=== PATIENT | male | born 1985 | race Caucasian/White ===

== ENCOUNTER 2017-07-09 10:38 | Emergency (ER) | payer BC ==
[2017-07-09 11:22] VITALS: BP 127/91
--- NOTE | 2017-07-09 11:36 | UC ---
Dental HPI - HPI Summary HPI Summary: Pt presents accompanied by friend and brother with complaints of right jaw/ cheek swelling with pain and right sided headache that began this morning. He has not taken anything for this discomfort. His female friend with him today is very concerned due to pt's history of two brain tumors and doesn't want this "infection to do to his brain or rest of his body". Denies fever, chills, vision changes, sore throat, or recent illness. - History of Current Complaint Chief Complaint: UCDentalProblem Stated Complaint: SWOLLEN FACE DENTAL PAIN Time Seen by Provider: 07/09/17 11:35 Hx Obtained From: Patient Onset/Duration: Sudden Onset Severity: Severe Pain Intensity: 10 Pain Scale Used: 0-10 Numeric - Allergies/Home Medications Allergies/Adverse Reactions: Allergies Allergy/AdvReac Type Severity Reaction Status Date / Time onion Allergy Vomiting Verified 07/09/17 11:22 Home Medications: Home Medications Desmopressin (Nonrefrigerated) [Ddavp 0.01% Nasal [place]] 1 spray NASAL DAILY 05/14 [History Confirmed 07/09/17] Levothyroxine Sodium 07/09/17 [History] PMH/Surg Hx/FS Hx/Imm Hx Endocrine History: Hypothyroidism - Surgical History Surgical History: None Surgery Procedure, Year, and Place: brain tumor-December 2016 - Social History Lives: With Family Alcohol Use: None Substance Use Type: None Smoking Status (MU): Never Smoked Tobacco Review of Systems Constitutional: Negative Skin: Negative Eyes: Negative ENT: Dental Pain - Right Respiratory: Negative Cardiovascular: Negative Neurological: Negative Psychological: Negative All Other Systems Reviewed And Are Negative: Yes Physical Exam Triage Information Reviewed: Yes Appearance: Pain Distress, Obese Vital Signs: Initial Vital Signs Temp 98.1 F 07/09/17 11:17 Pulse 105 07/09/17 11:17 Resp 16 07/09/17 11:17 BP 127/91 07/09/17 11:17 Pulse Ox 100 07/09/17 11:17 Vital Signs Reviewed: Yes Eyes: Positive: Conjunctiva Clear, Other: - EOMI. PERRLA. Negative: Conjunctiva Inflamed, Discharge ENT: Positive: Pharynx normal, TMs normal, Uvula midline. Negative: Pharyngeal erythema, TM bulging, TM dull, TM red, Hoarse voice Dental: Positive: Gross Decay/Caries @ - Throughout, Abscess @ - Right lower gums, Cervical Lymphadenopathy - Right, Other: - Multiple missing teeth and gross wearing away of remaining teeth. Moderate swelling to lower right jaw. Negative: Bleeding Neck: Positive: Supple, Other: - TTP over right mandible, cheek, and maxillary sinus. Respiratory: Positive: Lungs clear, Normal breath sounds, No respiratory distress Cardiovascular: Positive: RRR, No Murmur, Pulses Normal Neurological: Positive: Alert Psychological: Positive: Age Appropriate Behavior Skin: Negative: rashes Dental Complaint Course/Dx - Course Course Of Treatment: I discussed with the pt and his family that I would like to start him on Clindamycin orally. The female friend that accompanied him today became frustrated and suggested that he needs IV antibiotics. I told her that this appears to be a dental abscess and he would likely do well with po antibiotics, but she insisted that given his history he should get IV antibiotics. The pt agreed with this. I told them if they wanted IV antibiotics , the ED would be a more appropriate place to go, but it would be up to the decision of the provider they see. They decided to go by personal vehicle to the [facility] ED and request IV antibiotics. - Differential Dx/Diagnosis Provider Diagnoses: Lower right dental abscess Discharge - Discharge Plan Condition: Stable Disposition: OTHER Discharge Disposition Comment: To [facility] by private car Referrals: Peng Gonzalez MD [Primary Care Provider] - Additional Instructions: To [facility] ED by private car - requesting IV antibiotic.
== END 2017-07-09 11:52 ==
LOC: UCEAST 10:38
DX: K04.7 Periapical abscess without sinus (principal)
CPT/HCPCS: 99211; G0463

== ENCOUNTER 2017-07-09 12:09 | Emergency (ER) | payer BC ==
[2017-07-09] MEDS ORDERED: Ondansetron INJ* 2 MG/ML VIAL IV ONE (13:16)
[2017-07-09] MEDS ORDERED: Morphine INJ* 4 MG/ML 1 ML CARPUJECT IV ONE (13:16)
[2017-07-09] MEDS ORDERED: Piperacillin/Tazobac ADVAN(*) 3.375 GM in NS 0.9% 100 ML* 100 ML IVPB ONE (13:18)
[2017-07-09] MEDS ORDERED: Morphine INJ* 4 MG/ML 1 ML SYRINGE (NEW SYRINGE VERSION) ONE (13:28)
[2017-07-09 13:59] LABS: ABS Basophils 0 10^3/ul (0-0.2); ABS Eosinophils 0.1 10^3/ul (0-0.6); ABS Lymphocytes 1.7 10^3/ul (1.0-4.8); ABS Monocytes 0.6 10^3/ul (0-0.8); ABS Neutrophils 5.6 10^3/ul (1.5-7.7); ABS Nucleated RBC 0 10^3/ul; Hematocrit 43 % (42-52); Hemoglobin 14.4 g/dl (14.0-18.0); Lymphocyte % 21.6 % (25-47); Mean Corpuscular HGB Conc 34 g/dl (31-36); Mean Corpuscular Hemoglobin 31 pg (27-31); Mean Corpuscular Volume 93 fL (80-94); Mean Platelet Volume 9 um3 (7.4-10.4); Nucleated Red Blood Cells % 0.1; Platelet Count 236 10^3/ul (150-450); Red Blood Count 4.59 10^6/ul (4.0-5.4); Red Cell Distribution Width 15 % (10.5-15)
--- NOTE | 2017-07-09 14:03 | ED ---
Throat Pain/Nasal Congestion - HPI Summary HPI Summary: Patient is a 31-year-old male who presents to the ED with right lower jaw pain, swelling, erythema and warmth to the right side of the neck. Endorses a mild amount of trismus. Denies dysphagia, but endorses odynophagia. History of 2 brain surgeries for tumor removals. Most recently in December. Denies fevers, sweats, chills. Pain is 9 out of 10, constant and throbbing most discretely located over the right lower jaw and right neck without radiation. Symptoms began last evening, and worsened very quickly throughout the overnight and this morning. Denies any history of dental abscesses, however he denies recent dental care. Denies any visual changes. Denies throat pain, change of voice. Denies chest pressure, shortness of breath, headaches. - History of Current Complaint Chief Complaint: EDHeadache Time Seen by Provider: 07/09/17 13:02 Hx Obtained From: Patient Onset/Duration: Gradual Onset Severity: Moderate Associated Signs And Symptoms: Positive: Dysphagia - Epiglottits Risk Factors Epiglottis Risk Factors: Negative - Allergies/Home Medications Allergies/Adverse Reactions: Allergies Allergy/AdvReac Type Severity Reaction Status Date / Time onion Allergy Vomiting Verified 07/09/17 11:22 PMH/Surg Hx/FS Hx/Imm Hx Previously Healthy: Yes - Surgical History Surgery Procedure, Year, and Place: brain tumor-December 2016 - Immunization History Hx Pertussis Vaccination: No Immunizations Up to Date: Unable to Obtain/Confirm Infectious Disease History: No Infectious Disease History: Denies: Traveled Outside the [place] in Last 30 Days - Social History Occupation: Employed Full-time Lives: With Family Alcohol Use: None Hx Substance Use: No Substance Use Type: Reports: None Hx Tobacco Use: No Smoking Status (MU): Never Smoked Tobacco Review of Systems - ROS Summary Review of Systems Summary: Constitutional: The patient denies fever, MUÑOZ, sweats or chills. HEENT: Head: The patient denies headaches or dizziness. Eyes: The patient denies diplopia, blurry vision, eye pain, eye discharge, photophobia. Throat: The patient denies sore throats or hoarseness. Cardiovascular: The patient denies chest pain, palpitations, syncope, night cramps, or orthostasis. Respiratory: The patient denies cough, sputum production, hemoptysis, dyspnea, wheezing. Gastrointestinal: The patient denies odynophagia, dysphagia, hematemesis, melenemesis. Denies abdominal pain, nausea or vomiting. Denies constipation or diarrhea. Genitourinary: Patient denies dysuria, hematuria, or pyuria. Patient denies back pain. Denies vaginal discharge, vaginal bleeding. Denies other urinary symptoms. Endocrine: The patient denies polydipsia, polyuria, or polyphagia. Muscles: The patient denies myalgia, strain or weakness. Joints: The patient denies arthralgia and/or arthritis. Neurologic: The patient denies headache, loss of consciousness, or seizure. Dermatologic: The patient denies hyperpigmentation, rash, or photosensitivity. Constitutional: Negative Negative: Fever, Chills, Fatigue, Skin Diaphoresis Eyes: Negative - I really needed like his pulse Cardiovascular: Negative Gastrointestinal: Negative Genitourinary: Negative Positive: no symptoms reported, see HPI Musculoskeletal: Negative Neurological: Negative All Other Systems Reviewed And Are Negative: Yes Physical Exam - Summary Physical Exam Summary: Appearance: WDW, comfortable, pleasant, alert Skin: Soft dry skin, no lesions. Nailbeds pink with no cyanosis or clubbing. No petechia noted. Erythema and warmth to the right cheek and lateral neck. Eyes: JAS, EOMI, Conjunctiva pink with no redness or exudates. Mouth: Dentition without lesions. Moist mucosa. Dental caries with surrounding erythema to tooth #29. Neck: Full range of motion. Palpable thyroid. Trachea at midline. Swelling to the right lateral neck. Pulm: Chest symmetrical expansion. No deformities on posterior chest wall. Lungs clear to auscultation and percussion, without adventitious sounds. CV: No JVD. No deformities on anterior chest wall. Heart sounds. RRR. Normal S1 and single S2. No S3, S4, rubs, or murmurs. Carotids 2+ bilaterally without bruits. . exam not performed GI: Bowel sounds WNL in all 4 quadrants. No pain on deep palpation of all 4 quadrants. Negative page's, negative obturator. Psoas not performed. No pain over Mcburney's point. Musculoskeletal: Flexion and extension of neck without limitations. ROM WNL in all extremities. No deformities noted. Pulses +2 bilaterally. Neuro: Motor strength is 5/5 in upper and lower extremities bilaterally. A&OX3 Psych: Logical, coherent Triage Information Reviewed: Yes Vital Signs On Initial Exam: Initial Vitals Temp Pulse Resp BP Pulse Ox 96.4 F 113 16 146/93 98 07/09/17 12:12 07/09/17 12:12 18 12:12 07/09/17 12:12 07/09/17 12:12 Vital Signs Reviewed: Yes Appearance: Positive: Well-Nourished Skin: Positive: Warm, Skin Color Reflects Adequate Perfusion Head/Face: Positive: Normal Head/Face Inspection Eyes: Positive: EOMI, JAS, Conjunctiva Clear Dental: Positive: Percussion Tenderness @ - Tooth #28, Gross Decay/Caries @ - Throughout, Dental Fracture @ - Tooth #28, Cellulitis @ - Right lateral side of the neck with associated cervical lymphadenopathy, no abscess is appreciated Neck: Positive: Tenderness @ - Right lateral neck Diagnostics - Vital Signs Vital Signs Temp Pulse Resp BP Pulse Ox 07/09/17 13:49 18 07/09/17 12:12 96.4 F 113 16 146/93 98 - Laboratory Lab Results: Lab Results 07/09/17 Range/Units 13:40 WBC 8.0 (3.5-10.8) 10^3/ul RBC 4.59 (4.0-5.4) 10^6/ul Hgb 14.4 (14.0-18.0) g/dl Hct 43 (42-52) % MCV 93 (80-94) fL MCH 31 (27-31) pg MCHC 34 (31-36) g/dl RDW 15 (10.5-15) % Plt Count 236 (150-450) 10^3/ul MPV 9 (7.4-10.4) um3 Neut % (Auto) 69.5 (38-83) % Lymph % (Auto) 21.6 L (25-47) % [place] % (Auto) 7.5 (1-9) % Eos % (Auto) 1.0 (0-6) % Baso % (Auto) 0.4 (0-2) % Absolute Neuts (auto) 5.6 (1.5-7.7) 10^3/ul Absolute Lymphs (auto) 1.7 (1.0-4.8) 10^3/ul Absolute Monos (auto) 0.6 (0-0.8) 10^3/ul Absolute Eos (auto) 0.1 (0-0.6) 10^3/ul Absolute Basos (auto) 0 (0-0.2) 10^3/ul Absolute Nucleated RBC 0 10^3/ul Nucleated RBC % 0.1 Result Diagrams: 07/09/17 13:40 07/09/17 13:40 Lab Statement: Any lab studies that have been ordered have been reviewed, and results considered in the medical decision making process. EENT Course/Dx - Course Course Of Treatment: During the course of treatment, the patient is evaluated for right dental abscess versus deep space neck infection. Labs and blood cultures obtained. Zosyn 3.25 g IV given. Zofran and morphine IV with relief of symptoms. There is a mild amount of erythema and warmth to the right lateral neck with concern for cold existing cellulitis. CT soft tissue neck obtained to assess for deep space neck infection due to the rapid onset of symptoms versus dental abscess causing associated neck cellulitis. Labs within normal limits except for elevated LFTs, most likely related to his benign tumors. He is given clindamycin 300 mg 4 times daily 7 days. He is referred to ENT and will follow-up with a dentist as well. He is also to follow-up with Dr. Thomas as he does not have a neurologist in the area. I have asked him to get an appointment and have his records sent as soon as possible since he will likely need serial MRIs. On CT soft tissue neck there shows to be an inflammatory change along the right face consistent with a cellulitis without loculated fluid collection to suggest abscess. Extensive carious disease suggesting odontogenic source of infection. 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 While this is considered a benign tumor, it also may be fast-growing. He is to follow up with neurology and ENT regarding this. He is encouraged ibuprofen 60omg 3 times daily and for pain not well controlled with NSAIDs, he will take tramadol up to 3 times daily. - Differential Diagnoses Differential Diagnoses: Dental Abscess, Dental Caries - Diagnoses Provider Diagnoses: Pain, dental Discharge - Discharge Plan Condition: Stable Disposition: HOME Prescriptions: Clindamycin Cap(NF) [Clindamycin Cap 300 mg Cap(NF)] 300 mg PO Q6H #28 cap traMADol TAB* [Ultram*] 50 mg PO Q8H PRN #12 tab MDD 3 PRN Reason: Pain Patient Education Materials: Cellulitis (ED) Forms: *Work Release Referrals: Nimo Thomas MD [Medical Doctor] - Peng Gonzalez MD [Primary Care Provider] - Rubio Elder MD [Medical Doctor] - Additional Instructions: Please follow up with a dentist first, if you need ENT, I have given you a follow-up to Dr. Elder or if needed Call today for an appointment Please follow up with Dr. Thomas Ibuprofen 600 mg 3 times daily for inflammation Tramadol up to 3 times daily for pain not well controlled with ibuprofen Ice to the area 3 days off work If you develop any worsening symptoms, worsening redness warmth or swelling to the cheek, difficulty swallowing or breathing or unable to swallow secretions, return to the ED immediately.
[2017-07-09 14:17] LABS: EGFR Non-African American 80.8 (>60)
[2017-07-09] MEDS ORDERED: Iohexol 300* (CONTRAST) 10 ML SDV IV ONE (14:22)
--- NOTE | 2017-07-09 14:58 | RAD ---
HISTORY: Neck cellulitis COMPARISONS: None TECHNIQUE: Multiple contiguous axial CT scans were obtained of the neck after the administration of nonionic intravenous contrast, with coronal and sagittal multiplanar reformations. FINDINGS: BRAIN AND ORBITS: The patient is status post craniotomy. PARANASAL SINUSES: The visualized paranasal sinuses are clear. SALIVARY GLANDS: The parotid glands, submandibular glands, sublingual glands are normal. NASAL CAVITY/NASOPHARYNX: The nasal cavity and nasopharynx are normal. ORAL CAVITY/OROPHARYNX: There is about circumscribed lucency along the crown of the smaller mandible on the left. There are multiple. Lucencies along the mandible and maxilla with extensive carious disease. LARYNGEAL APPARATUS/HYPOPHARYNX: The laryngeal apparatus and hypopharynx are normal. UPPER AIRWAY/UPPER ESOPHAGUS: The visualized upper airway and esophagus are normal. LUNG APICES: The lung apices are clear. THYROID GLAND: The thyroid gland is normal. LYMPH NODES: There is no lymphadenopathy by size criteria. VASCULATURE: The vasculature is unremarkable. BONES AND SOFT TISSUES: There is stranding of the subcutaneous the right face with thickening of the platysma fascia. There is no loculated fluid collection to suggest abscess. There is soft tissue calcification along the left face in axial image 73. OTHER: None. IMPRESSION: 1. INFLAMMATORY CHANGE ALONG THE RIGHT FACE CONSISTENT WITH CELLULITIS WITHOUT LOCULATED FLUID COLLECTION TO SUGGEST ABSCESS. 2. EXTENSIVE CARIOUS DISEASE SUGGESTING ODONTOGENIC SOURCE OF INFECTION. 3. LUCENCY ALONG THE LEFT LAST MOLAR, SUGGESTIVE OF A KERATOCYSTIC ODONTOGENIC TUMOR
[2017-07-09 15:43] VITALS: BP 117/74
== END 2017-07-09 15:42 | disposition home or self-care (01) ==
LOC: ED 12:09
DX: K02.9 Dental caries, unspecified (principal)
CPT/HCPCS: 36415; 70491; 80053; 83605; 83690; 85025; 86140; 87040; 96374; 96375; 99283; J2270; J2405; J2543; Q9967

== ENCOUNTER 2017-08-01 18:30 | Emergency (ER) | payer BC ==
--- NOTE | 2017-08-01 18:47 | ED ---
Headache - History Of Current Complaint Stated Complaint: HEADACHE Time Seen by Provider: 08/01/17 18:46 - Allergies/Home Medications Allergies/Adverse Reactions: Allergies Allergy/AdvReac Type Severity Reaction Status Date / Time onion Allergy Vomiting Verified 07/09/17 11:22 PMH/Surg Hx/FS Hx/Imm Hx - Surgical History Surgery Procedure, Year, and Place: brain tumor-December 2016 Infectious Disease History: Denies: Traveled Outside the [place] in Last 30 Days - Social History Alcohol Use: None Hx Substance Use: No Substance Use Type: Reports: None Hx Tobacco Use: No Smoking Status (MU): Never Smoked Tobacco Diagnostics - Laboratory Result Diagrams: 08/01/17 20:15 08/01/17 20:15 Lab Statement: Any lab studies that have been ordered have been reviewed, and results considered in the medical decision making process. Headache Course/Dx - Diagnoses Provider Diagnoses: C. difficile colitis, Headache Discharge - Discharge Plan Condition: Stable Disposition: HOME Prescriptions: Ibuprofen TAB* [Motrin TAB* 800 MG] 800 mg PO Q6H PRN #30 tab PRN Reason: Fever/Pain oxyCODONE/Acetamin 5/325 MG* [Percocet 5/325 TAB*] 1 tab PO Q6H PRN #14 tab MDD 4 PRN Reason: Headache Vancomycin CAP* 125 mg PO QID #40 cap Patient Education Materials: Migraine Headache (ED), Clostridium Difficile Infection (ED) Forms: *Work Release Referrals: Peng Gonzalez MD [Primary Care Provider] - 3 Days Additional Instructions: RETURN TO EMERGENCY DEPARTMENT FOR ANY NEW OR WORSENING SYMPTOMS
[2017-08-01] MEDS ORDERED: HYDROmorphone INJ* 2 MG/ML CARPUJECT SYRINGE IV SLOW PU ONE (19:28)
[2017-08-01] MEDS ORDERED: Acetaminophen TAB* 325 MG PO ONE (19:28)
[2017-08-01] MEDS ORDERED: NS 0.9% 1000 ML* 1,000 ML IV ONE ×2 (19:29→20:59)
[2017-08-01] MEDS ORDERED: diPHENhydraMINE IV* 50 MG/ML 1 ml VIAL (BENADRYL) IV ONE (19:29)
[2017-08-01] MEDS ORDERED: Metoclopramide IV* 5 MG/ML 2 ML VIAL IV SLOW PU ONE (19:29)
--- NOTE | 2017-08-01 20:17 | RAD ---
Indication: Infiltrates. CT of the brain was performed without IV contrast Ventricular structures are midline. No midline shift is noted. The extraction spaces are unremarkable. The patient status post right temporal craniotomy. Previously identified suprasellar mass is not present on this study. There is presumed to have been resected. There is no evidence of hemorrhage. No other high or low density lesions are identified. Mastoid air cells and paranasal sinuses are clear. IMPRESSION: There is no evidence of mass or hemorrhage. 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
--- NOTE | 2017-08-01 20:23 | RAD ---
Indication: Fever. Single frontal view of the chest demonstrates no mediastinal shift. Heart is of normal size and configuration. Lung campos appear clear. IMPRESSION: No active cardiopulmonary disease is noted.
[2017-08-01 20:25] LABS: Hematocrit 46 % (42-52); Mean Corpuscular HGB Conc 35 g/dl (31-36); Mean Corpuscular Hemoglobin 31 pg (27-31); Mean Corpuscular Volume 91 fL (80-94); Mean Platelet Volume 9 um3 (7.4-10.4); Platelet Count 272 10^3/ul (150-450); Red Blood Count 5.12 10^6/ul (4.0-5.4); Red Cell Distribution Width 14 % (10.5-15); White Blood Count 12.8 10^3/ul (3.5-10.8)
[2017-08-01 20:39] LABS: EGFR Non-African American 48.9 (>60)
[2017-08-01 20:41] LABS: INR 1.34 (0.77-1.02)
[2017-08-01 20:51] LABS: ABS Basophils 0.1 10^3/ul (0-0.2); ABS Eosinophils 0 10^3/ul (0-0.6); ABS Lymphocytes 1.8 10^3/ul (1.0-4.8); ABS Monocytes 1.7 10^3/ul (0-0.8); ABS Neutrophils 9.2 10^3/ul (1.5-7.7); ABS Nucleated RBC 0 10^3/ul; Eosinophil % 0.1 % (0-6); Lymphocyte % 13.9 % (25-47); Nucleated Red Blood Cells % 0
[2017-08-01] MEDS ORDERED: Ibuprofen TAB* 800 MG PO ONE (21:04)
[2017-08-01] MEDS ORDERED: metroNIDAZOLE TAB* 250 MG PO ONE (23:27)
[2017-08-02] MEDS ORDERED: Vancomycin CAP* 125 MG CAP PO ONE (00:01)
[2017-08-02 00:02] LABS: Urine Appearance Clear; Urine Blood Negative (Negative); Urine Color Yellow; Urine Ketones Negative (Negative); Urine Protein Negative (Negative); Urine Specific Gravity 1.006 (1.010-1.030); Urine Urobilinogen Negative (Negative)
[2017-08-02 00:37] VITALS: BP 108/55
--- NOTE | 2017-08-28 06:39 | ED ---
Robin Rocha Stephanie, scribed for Kristen Choudhury MD on 08/01/17 at 1939 . Headache - HPI Summary HPI Summary: The pt is a 31 y/o M presenting to the ED with c/o migraine that began at 20:00 yesterday. Symptoms include shakes and ear pain. The pt denies N/V and nasal congestion. 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 The pt denies radiation and chemotherapy after the tumor removal in 2010. The pt denies neurological deficit following the removal of the tumor. In 2016, another brain tumor was discovered and removed in November. The pt reports symptoms of migraines with the tumor. Per mother, the pt had one follow-up MRI about 4 months ago after the removal of the second tumor. The pt states he recently saw a dentist one week ago due to edema in his jaw where he was informed that the xrays showed he had a tumor on his jaw. The pt saw his neurologist yesterday and was prescribed medication to decrease his MUÑOZ. - History Of Current Complaint Chief Complaint: EDFluSymptoms Stated Complaint: HEADACHE Time Seen by Provider: 08/01/17 18:46 Hx Obtained From: Patient, Family/Personnel Representative - mother Onset/Duration: Gradual Onset, Started days ago, Still Present Currently Pain Is: Severe Timing: Constant Character: Migraine Location of Headache: Diffuse Aggravating Factor: Nothing Allevating Factors: Nothing - Allergies/Home Medications Allergies/Adverse Reactions: Allergies Allergy/AdvReac Type Severity Reaction Status Date / Time onion Allergy Vomiting Verified 07/09/17 11:22 PMH/Surg Hx/FS Hx/Imm Hx Neurological History: Reports: Hx Migraine, Other Neuro Impairments/Disorders - brain tumors - Surgical History Surgery Procedure, Year, and Place: brain tumor-December 2016 Infectious Disease History: No Infectious Disease History: Denies: Traveled Outside the [place] in Last 30 Days - Family History Known Family History: Positive: Other - cancer - Social History Occupation: Employed Full-time Lives: With Family Alcohol Use: Rare Hx Substance Use: No Substance Use Type: Reports: None Hx Tobacco Use: No Smoking Status (MU): Never Smoked Tobacco Review of Systems Negative: Fever Positive: Other - Negative: nasal congestion Negative: Vomiting, Nausea Positive: Headache All Other Systems Reviewed And Are Negative: Yes Physical Exam - Summary Physical Exam Summary: VITAL SIGNS: Reviewed. GENERAL: Patient is a well-developed and nourished MALE who is lying uncomfortably due to MUÑOZ. Patient is not in any acute respiratory distress. HEAD AND FACE: No signs of trauma. No ecchymosis, hematomas or skull depressions. No sinus tenderness. EYES: PERRLA, EOMI x 2, No injected conjunctiva, no nystagmus. EARS: Hearing grossly intact. Ear canals and tympanic membranes are within normal limits. MOUTH: Oropharynx within normal limits. NECK: Supple, trachea is midline, no adenopathy, no JVD, no carotid bruit, no c- spine tenderness, neck with full ROM. CHEST: Symmetric, no tenderness at palpation LUNGS: Clear to auscultation bilaterally. No wheezing or crackles. CVS: Tachycardic, regular rhythm, S1 and S2 present, no murmurs or gallops appreciated. ABDOMEN: Soft, non-tender. No signs of distention. No rebound no guarding, and no masses palpated. Bowel sounds are normal. EXTREMITIES: FROM in all major joints, no edema, no cyanosis or clubbing. NEURO: Alert and oriented x 3. No acute neurological deficits. Speech is normal and follows commands. SKIN: Dry and warm Triage Information Reviewed: Yes Vital Signs On Initial Exam: Initial Vitals BP 124/77 08/01/17 18:39 Vital Signs Reviewed: Yes Diagnostics - Vital Signs Vital Signs Temp Pulse Resp BP Pulse Ox 08/01/17 18:47 101.2 F 133 22 124/77 98 08/01/17 18:40 131 96 08/01/17 18:39 124/77 - Laboratory Lab Results: Lab Results 08/01/17 08/01/17 08/01/17 Range/Units 20:15 20:15 20:15 WBC 12.8 H (3.5-10.8) 10^3/ul RBC 5.12 (4.0-5.4) 10^6/ul Hgb 16.0 (14.0-18.0) g/dl Hct 46 (42-52) % MCV 91 (80-94) fL MCH 31 (27-31) pg MCHC 35 (31-36) g/dl RDW 14 (10.5-15) % Plt Count 272 (150-450) 10^3/ul MPV 9 (7.4-10.4) um3 Neut % (Auto) 71.9 (38-83) % Lymph % (Auto) 13.9 L (25-47) % [place] % (Auto) 13.5 H (0-7) % Eos % (Auto) 0.1 (0-6) % Baso % (Auto) 0.6 (0-2) % Absolute Neuts (auto) 9.2 H (1.5-7.7) 10^3/ul Absolute Lymphs (auto) 1.8 (1.0-4.8) 10^3/ul Absolute Monos (auto) 1.7 H (0-0.8) 10^3/ul Absolute Eos (auto) 0 (0-0.6) 10^3/ul Absolute Basos (auto) 0.1 (0-0.2) 10^3/ul Absolute Nucleated RBC 0 10^3/ul Nucleated RBC % 0 INR (Anticoag Therapy) 1.34 H (0.77-1.02) APTT 35.0 (26.0-36.3) seconds Sodium 142 (133-145) mmol/L Potassium 3.6 (3.5-5.0) mmol/L Chloride 111 (101-111) mmol/L Carbon Dioxide 18 L (22-32) mmol/L Anion Gap 13 H (2-11) mmol/L BUN 13 (6-24) mg/dL Creatinine 1.67 H (0.67-1.17) mg/dL Est GFR ( Amer) 62.9 (>60) Est GFR (Non-Af Amer) 48.9 (>60) BUN/Creatinine Ratio 7.8 L (8-20) Glucose 138 H (70-100) mg/dL Lactic Acid (0.5-2.0) mmol/L Calcium 10.0 (8.6-10.3) mg/dL Total Bilirubin 0.70 (0.2-1.0) mg/dL AST 21 (13-39) U/L ALT 22 (7-52) U/L Alkaline Phosphatase 107 H (34-104) U/L Total Creatine Kinase 302 H (10-223) U/L C-Reactive Protein 158.15 H (< 5.00) mg/L Total Protein 8.3 (6.4-8.9) g/dL Albumin 4.5 (3.2-5.2) g/dL Globulin 3.8 (2-4) g/dL Albumin/Globulin Ratio 1.2 (1-3) Urine Color Urine Appearance Urine pH (5-9) Ur Specific [place] (1.010-1.030) Urine Protein (Negative) Urine Ketones (Negative) Urine Blood (Negative) Urine Nitrate (Negative) Urine Bilirubin (Negative) Urine Urobilinogen (Negative) Ur Leukocyte Esterase (Negative) Urine Glucose (Negative) Influenza A (Rapid) (Negative) Influenza B (Rapid) (Negative) Group A Strep Rapid (Negative) 08/01/17 08/01/17 08/01/17 Range/Units 20:15 20:25 20:26 WBC (3.5-10.8) 10^3/ul RBC (4.0-5.4) 10^6/ul Hgb (14.0-18.0) g/dl Hct (42-52) % MCV (80-94) fL MCH (27-31) pg MCHC (31-36) g/dl RDW (10.5-15) % Plt Count (150-450) 10^3/ul MPV (7.4-10.4) um3 Neut % (Auto) (38-83) % Lymph % (Auto) (25-47) % [place] % (Auto) (0-7) % Eos % (Auto) (0-6) % Baso % (Auto) (0-2) % Absolute Neuts (auto) (1.5-7.7) 10^3/ul Absolute Lymphs (auto) (1.0-4.8) 10^3/ul Absolute Monos (auto) (0-0.8) 10^3/ul Absolute Eos (auto) (0-0.6) 10^3/ul Absolute Basos (auto) (0-0.2) 10^3/ul Absolute Nucleated RBC 10^3/ul Nucleated RBC % INR (Anticoag Therapy) (0.77-1.02) APTT (26.0-36.3) seconds Sodium (133-145) mmol/L Potassium (3.5-5.0) mmol/L Chloride (101-111) mmol/L Carbon Dioxide (22-32) mmol/L Anion Gap (2-11) mmol/L BUN (6-24) mg/dL Creatinine (0.67-1.17) mg/dL Est GFR ( Amer) (>60) Est GFR (Non-Af Amer) (>60) BUN/Creatinine Ratio (8-20) Glucose (70-100) mg/dL Lactic Acid 1.8 (0.5-2.0) mmol/L Calcium (8.6-10.3) mg/dL Total Bilirubin (0.2-1.0) mg/dL AST (13-39) U/L ALT (7-52) U/L Alkaline Phosphatase (34-104) U/L Total Creatine Kinase (10-223) U/L C-Reactive Protein (< 5.00) mg/L Total Protein (6.4-8.9) g/dL Albumin (3.2-5.2) g/dL Globulin (2-4) g/dL Albumin/Globulin Ratio (1-3) Urine Color Urine Appearance Urine pH (5-9) Ur Specific [place] (1.010-1.030) Urine Protein (Negative) Urine Ketones (Negative) Urine Blood (Negative) Urine Nitrate (Negative) Urine Bilirubin (Negative) Urine Urobilinogen (Negative) Ur Leukocyte Esterase (Negative) Urine Glucose (Negative) Influenza A (Rapid) Negative (Negative) Influenza B (Rapid) Negative (Negative) Group A Strep Rapid Negative (Negative) 08/01/17 Range/Units 23:48 WBC (3.5-10.8) 10^3/ul RBC (4.0-5.4) 10^6/ul Hgb (14.0-18.0) g/dl Hct (42-52) % MCV (80-94) fL MCH (27-31) pg MCHC (31-36) g/dl RDW (10.5-15) % Plt Count (150-450) 10^3/ul MPV (7.4-10.4) um3 Neut % (Auto) (38-83) % Lymph % (Auto) (25-47) % [place] % (Auto) (0-7) % Eos % (Auto) (0-6) % Baso % (Auto) (0-2) % Absolute Neuts (auto) (1.5-7.7) 10^3/ul Absolute Lymphs (auto) (1.0-4.8) 10^3/ul Absolute Monos (auto) (0-0.8) 10^3/ul Absolute Eos (auto) (0-0.6) 10^3/ul Absolute Basos (auto) (0-0.2) 10^3/ul Absolute Nucleated RBC 10^3/ul Nucleated RBC % INR (Anticoag Therapy) (0.77-1.02) APTT (26.0-36.3) seconds Sodium (133-145) mmol/L Potassium (3.5-5.0) mmol/L Chloride (101-111) mmol/L Carbon Dioxide (22-32) mmol/L Anion Gap (2-11) mmol/L BUN (6-24) mg/dL Creatinine (0.67-1.17) mg/dL Est GFR ( Amer) (>60) Est GFR (Non-Af Amer) (>60) BUN/Creatinine Ratio (8-20) Glucose (70-100) mg/dL Lactic Acid (0.5-2.0) mmol/L Calcium (8.6-10.3) mg/dL Total Bilirubin (0.2-1.0) mg/dL AST (13-39) U/L ALT (7-52) U/L Alkaline Phosphatase (34-104) U/L Total Creatine Kinase (10-223) U/L C-Reactive Protein (< 5.00) mg/L Total Protein (6.4-8.9) g/dL Albumin (3.2-5.2) g/dL Globulin (2-4) g/dL Albumin/Globulin Ratio (1-3) Urine Color Yellow Urine Appearance Clear Urine pH 5.0 (5-9) Ur Specific [place] 1.006 L (1.010-1.030) Urine Protein Negative (Negative) Urine Ketones Negative (Negative) Urine Blood Negative (Negative) Urine Nitrate Negative (Negative) Urine Bilirubin Negative (Negative) Urine Urobilinogen Negative (Negative) Ur Leukocyte Esterase Negative (Negative) Urine Glucose Negative (Negative) Influenza A (Rapid) (Negative) Influenza B (Rapid) (Negative) Group A Strep Rapid (Negative) Result Diagrams: 08/01/17 20:15 08/01/17 20:15 Lab Statement: Any lab studies that have been ordered have been reviewed, and results considered in the medical decision making process. - Radiology CXR Xray Interpretation: No Acute Changes Radiology Interpretation Completed By: Radiologist - No active cardiopulmonary disease is noted. ED physician has reviewed this imaging report and agrees. - CT Brain CT Interpretation: No Acute Changes CT Interpretation Completed By: Radiologist - There is no evidence of mass or hemorrhage. 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 ED physician has reviewed this imaging report and agrees. Headache Course/Dx - Course Course Of Treatment: The pt tested positive for C.diff colitis. He will be discharged. - Diagnoses Provider Diagnoses: C. difficile colitis, Headache Discharge - Sign-Out/Discharge Documenting (check all that apply): Discharge - Discharge Plan Condition: Stable Disposition: HOME Prescriptions: Ibuprofen TAB* [Motrin TAB* 800 MG] 800 mg PO Q6H PRN #30 tab PRN Reason: Fever/Pain oxyCODONE/Acetamin 5/325 MG* [Percocet 5/325 TAB*] 1 tab PO Q6H PRN #14 tab MDD 4 PRN Reason: Headache Vancomycin CAP* 125 mg PO QID #40 cap Patient Education Materials: Migraine Headache (ED), Clostridium Difficile Infection (ED) Forms: *Work Release Referrals: Peng Gonzalez MD [Primary Care Provider] - 3 Days Additional Instructions: RETURN TO EMERGENCY DEPARTMENT FOR ANY NEW OR WORSENING SYMPTOMS - Billing Disposition and Condition Condition: STABLE Disposition: HOME The documentation as recorded by the Robin dalal Stephanie accurately reflects the service I personally performed and the decisions made by , Kristen Choudhury MD.
== END 2017-08-02 00:37 | disposition home or self-care (01) ==
LOC: ED 18:30
DX: R51 Headache (principal); A04.72 Enterocolitis due to Clostridium difficile, not specified as recurrent
CPT/HCPCS: 36415; 70450; 71045; 80053; 81003; 82550; 83605; 85025; 85610; 85730; 86140; 87040; 87493; 87502; 87651; 96361; 96374; 96375; 99284; A9270-GY; J1170; J1200; J2765

== ENCOUNTER 2017-10-09 10:15 | Emergency (ER) | payer BC ==
[2017-10-09 10:19] VITALS: BP 147/97
--- NOTE | 2017-10-09 11:02 | RAD ---
INDICATION: Left knee pain, twisting injury one month ago. TECHNIQUE: 4 views of the left knee were obtained. FINDINGS: The bones are normal alignment. No joint effusion or fracture is seen. There is a nonspecific lucent area present in the subarticular region of the lateral femoral condyle suggestive of a subchondral cyst. Joint spaces appear maintained. IMPRESSION: NO EVIDENCE FOR FRACTURE.
--- NOTE | 2017-10-09 11:22 | ED ---
Roxana Rocha Gabriel, scribed for Martin Davis MD on 10/09/17 at 1026 . Lower Extremity - HPI Summary HPI Summary: This patient is a 31 year old M presenting to [facility] accompanied by his mother with a chief complaint of increased L pain s/p injury that occurred one month ago. The patient rates the pain 4/10 in severity and states it feels like nerve pain. Symptoms aggravated by bending at the knee. Symptoms alleviated by not moving it. Patient states the pain will shoot up into his left flank. Patient denies injury. Pt states he currently does not have cancer currently. Hx of brain cancer on november 2016 it was resected. - History of Current Complaint Chief Complaint: EDExtremityLower Stated Complaint: LT KNEE PROBLEM Time Seen by Provider: 10/09/17 10:23 Hx Obtained From: Patient Mechanism Of Injury: Other - none Onset/Duration: Still Present Severity Initially: Mild Severity Currently: Mild Pain Intensity: 4 Pain Scale Used: 0-10 Numeric Timing: Constant Location: Is Discrete @ - L knee Aggravating Factor(s): Standing, Ambulation, Movement Alleviating Factor(s): Rest Able to Bear Weight: Yes - Allergies/Home Medications Allergies/Adverse Reactions: Allergies Allergy/AdvReac Type Severity Reaction Status Date / Time onion Allergy Vomiting Verified 07/09/17 11:22 Home Medications: Home Medications Desmopressin 0.01% NASAL* [DDAVP 0.01% Nasal *] 1 puff NASAL QPM 10/09/17 [ History Confirmed 10/09/17] Levothyroxine TAB* [Synthroid TAB*] 100 mcg PO DAILY 10/09/17 [History Confirmed 10/09/17] PMH/Surg Hx/FS Hx/Imm Hx Endocrine/Hematology History: Denies: Hx Blood Transfusions, Hx Bone Marrow Disease Cardiovascular History: Denies: Hx Coronary Artery Disease, Hx Deep Vein Thrombosis Respiratory History: Denies: Hx Chronic Obstructive Pulmonary Disease (COPD) GI History: Denies: Hx Crohn's Disease Neurological History: Reports: Hx Migraine, Other Neuro Impairments/Disorders - brain tumors Psychiatric History: Denies: Hx Oppositional [place] Disorder - Cancer History Cancer Type, Location and Year: BRAIN TUMOR - Surgical History Surgery Procedure, Year, and Place: brain tumor-December 2016 Infectious Disease History: No Infectious Disease History: Denies: Traveled Outside the [place] in Last 30 Days - Family History Known Family History: Positive: Other - cancer Negative: Respiratory Disease, Seizure Disorder - Social History Occupation: Employed Full-time Lives: With Family Alcohol Use: Rare Hx Substance Use: No Substance Use Type: Reports: None Hx Tobacco Use: No Smoking Status (MU): Never Smoked Tobacco Review of Systems Constitutional: Negative - injury Positive: Other - left knee pain All Other Systems Reviewed And Are Negative: Yes Physical Exam - Summary Physical Exam Summary: Appearance: Well appearing, no pain distress Skin: warm, dry, reflects adequate perfusion Head/face: normal, right temporal scar Eyes: EOMI, JAS ENT: normal Neck: supple, non-tender Respiratory: CTA, breath sounds present Cardiovascular: RRR, pulses symmetrical Abdomen: non-tender, soft Bowel Sounds: present Musculoskeletal: normal, strength/ROM intact, no joint effusion, knee is stable with stress, negative lockman, negative anterior and posterior drawer test, knee cap is not lax, negative straight leg test, negative log roll Neuro: normal, sensory motor intact, A&Ox3 Triage Information Reviewed: Yes Vital Signs On Initial Exam: Initial Vitals Temp Pulse Resp BP Pulse Ox 96.7 F 74 16 147/97 98 10/09/17 10:17 10/09/17 10:17 10/09/17 10:17 10/09/17 10:17 10/09/17 10:17 Vital Signs Reviewed: Yes Diagnostics - Vital Signs Vital Signs Temp Pulse Resp BP Pulse Ox 10/09/17 10:17 96.7 F 74 16 147/97 98 - Laboratory Lab Statement: Any lab studies that have been ordered have been reviewed, and results considered in the medical decision making process. - Radiology knee xray Radiology Interpretation Completed By: Radiologist - no evidence for fracture ED physician has reviewed this radiology report. Lower Extremity Course/Dx - Course Course Of Treatment: Patient with occasional sharp shooting pain in the medial knee over 1+ month. He has no pain now. There is no real exacerbation of pain on exam. The knee is stable. The x-rays are negative. He does have a history of brain malignancy but is not able to tell me what kind. 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 The records do not reveal his type of malignancy. Masses in the jaw are reported to be benign. As such, I have recommended that he follow-up closely with his primary care physician. He has no evidence for nerve for compression at this time. Depending on his prior diagnosis further imaging, especially of the lumbar spine area may be necessitated. - Diagnoses Provider Diagnoses: Left knee pain, History of brain cancer Discharge - Sign-Out/Discharge Documenting (check all that apply): Discharge/Admit/Transfer - Discharge Plan Condition: Good Disposition: HOME Patient Education Materials: Knee Pain (ED) Forms: *Work Release Referrals: MICK Red [Primary Care Provider] - Peng Gonzalez MD [Medical Doctor] - Additional Instructions: Call [facility] today and schedule follow-up. They will be old access what year cancer history is. With persistent symptoms or more frequent symptoms I would have her low back area examined further with imaging. Return if worse, new symptoms or other concerns as discussed. Phill wrap, ibuprofen as needed. - Billing Disposition and Condition Condition: GOOD Disposition: HOME The documentation as recorded by the Roxana dalal Gabriel accurately reflects the service I personally performed and the decisions made by me, Martin Davis MD.
== END 2017-10-09 11:16 | disposition home or self-care (01) ==
LOC: ED 10:15
DX: M25.562 Pain in left knee (principal); Z85.841 Personal history of malignant neoplasm of brain
CPT/HCPCS: 99281